=== PATIENT | male | born 1960 | race Caucasian/White ===

== ENCOUNTER 2021-01-30 07:34 | Inpatient (IN) | payer MEDICAID ==
[~2021-01-30] VITALS: Ht 177.8 cm; Wt 99.8 kg
--- NOTE | ~2021-01-30 | OP ---
PATIENT NAME: JAY OROZCO MEDICAL RECORD: [id number] :58 LOCATION:D. D.2107 ADMISSION DATE:01/30/21 SURGEON: SAL JOHNS MD DATE OF OPERATION: 02/01/2021 REFERRING PHYSICIAN: 1. Owen Walls MD 2. Leighton Jimenez MD PREOPERATIVE DIAGNOSIS: End-stage renal disease and dependence on hemodialysis. POSTOPERATIVE DIAGNOSIS: End-stage renal disease and dependence on hemodialysis. OPERATION PERFORMED: Creation of a left upper extremity brachial artery to basilic vein amino type arteriovenous fistula. SURGEON: Sal Johns MD ANESTHESIA: Regional nerve block plus MAC per PRODUCT DEVELOPMENT CONSULTANT PREOPERATIVE NOTE: Mr. Orozco is a 60-year-old male with end-stage renal disease, who was admitted to the hospital with congestive heart failure and fluid overload, having missed some dialysis. He dialyzes in [place] with a catheter. He needs long-term access and Dr. Walls has asked me to go ahead and place that access while he is an inpatient. Actually, he was already scheduled to have been done as an outpatient today, but that was before he was admitted to the hospital. DESCRIPTION OF PROCEDURE: Under anesthesia in supine position, the patient was prepped and draped in sterile manner. A tourniquet was placed on the upper arm and application of nitroglycerin ointment to the arm was done and then the arm was examined with ultrasound. I found the best vein to be the basilic vein in the upper arm and elected to go ahead with a brachiobasilic fistula, probably in 2 stages. I made a transverse incision in the antecubital space and exposed the median cubital vein branch to the basilic vein and freed it from the surrounding structures and ligated distal tributaries and treated with topical papaverine. It was divided and bevelled and flushed with heparinized saline and clamped. The brachial artery was exposed and controlled with Silastic loops and prepared for anastomosis. A small arteriotomy about 6 mm in length was made and the artery was then flushed with heparinized saline. An end-of-vein to [id number]-gp-[id number] anastomosis was then completed with running 7-0 Prolene. With release of the occluding loops, excellent flow was immediately established within the fistula and there was preservation of flow distally in the brachial artery and then the radial and ulnar arteries at the wrist. The Doppler flow signals were not much affected by occlusion of the fistula. The wound was irrigated with saline and then closed with interrupted inverted 3-0 Vicryl running intracuticular 4-0 Stratafix, Dermabond glue and Maxorb AG, dressing of Tegaderm and Cavilon skin prep was applied and the patient then was awakened and returned to the recovery room. PLAN: The patient will go home when maximal hospital benefit per nephrology. I OPERATIVE REPORT [id number] JAY OROZCO will need to see him back in my office probably in about 10 to 14 days to remove his dressing and do a wound check. I will have to plan on returning him to the operating room in 2 to 4 weeks for revision to convert this Anna fistula to a brachial artery to translocated basilic vein AV fistula. Blood loss during the operation was about 5 mL. All sponges, instruments and needles were accounted for. No drain was used and no surgical specimen was submitted for histopathology. TRANSINT:[id number] Voice Confirmation ID: [id number] DOCUMENT ID: [id number] SAL JOHNS MD CC: LEIGHTON JIMENEZ MD and OWEN WALLS MD [id number] DICTATION DATE: 02/01/21 1226 PSYCHIATRIC NURSE: 02/01/21 215 ADM IN [facility] [address] [place] [address]
[2021-01-30] MEDS ORDERED: LISINOPRIL40 MG PO (07:41)
[2021-01-30] MEDS ORDERED: HYDROCHLOROTHIA50 MG PO (07:42)
[2021-01-30] MEDS ORDERED: GEODON40 MG PO (07:43)
[2021-01-30] MEDS ORDERED: CLONIDINE HCL0.1 MG PO (07:43)
[2021-01-30 08:09] LABS: BASOPHILS 0.2 % (0-2); EOSINOPHILS 0.1 % (0-7); HEMATOCRIT 31.4 % (42.0-54.0); HEMOGLOBIN 10.2 g/dL (13.5-17.5); IMMATURE GRANULOCYTES 0.9 % (0-5); LYMPHOCYTE ABS# 0.66 10x3/uL (1.32-3.57); LYMPHOCYTES 7.4 % (15-50); MCH 30.3 pg (26.0-34.0); MCHC 32.5 g/dL (31.0-37.0); MCV 93.2 fL (80.0-100.0); MONOCYTES 1.5 % (2-11); NEUTROPHIL ABS# 7.96 10x3/uL (1.78-5.38); NEUTROPHILS 89.9 % (40-80); PLATELET COUNT 163 10x3/uL (130-400); RBC 3.37 10x6/uL (4.20-6.10); RDW 13.5 % (11.5-14.5); WBC 8.9 10x3/uL (4.8-10.8)
[2021-01-30 08:18] LABS: CALC OSMOLALITY 304 mosm/kg (275-300); CALCIUM 8.3 mg/dL (8.5-10.1); CARBON DIOXIDE 20.3 mmol/L (21.0-32.0); CHLORIDE - SERUM 104 mmol/L (98-107); CREATININE - SERUM 7.1 mg/dL (0.6-1.3); GLUCOSE 259 mg/dL (74-106); POTASSIUM - SERUM 5.8 mmol/L (3.5-5.1); SODIUM 135 mmol/L (136-145); UREA NITROGEN 85 mg/dL (7-18); eGFR NON AFRICAN AMERICAN 8 mL/min (90-120)
[2021-01-30 08:21] LABS: APTT 34.7 SECONDS (22.8-39.4); INR 1.14 (0.85-1.17); PROTIME 13.5 SECONDS (11.6-15.0)
[2021-01-30 08:32] LABS: ALBUMIN 2.7 g/dL (3.4-5.0); ALKALINE PHOSPHATASE 74 U/L (30-120); ALT (SGPT) 32 U/L (10-68); BILIRUBIN - TOTAL 0.58 mg/dL (0.2-1.3); CKMB 1.4 U/L (0.0-3.6); CREATINE KINASE 165 UL (21-232); PRO BNP 16814 pg/mL (0-125); PROTEIN - SERUM 7.9 g/dL (6.4-8.2)
[2021-01-30 11:31] VITALS: BP 180/79
--- NOTE | 2021-01-30 12:16 | NUR ---
CALCIUM GLUC. INFUSION STOPPED AT 0850
--- NOTE | 2021-01-30 14:30 | NUR ---
NURSE GOT PATIENT FROM DIALYSIS, PATIENT IS ALERT AND ORIENTED. PLAN OF CARE REVIEWED AND ASSESSMENT HAS BEEN COMPLETED. PATIENT DENIES PAIN OR NEEDS. CALL LIGHT IN REACH
[2021-01-30 14:49] VITALS: BP 180/81; BMI 31.6
[2021-01-30 16:58] LABS: INR 1.14 (0.85-1.17); PROTIME 13.5 SECONDS (11.6-15.0)
[2021-01-30 19:04] VITALS: BP 189/68
--- NOTE | 2021-01-30 19:46 | NUR ---
RECIEVED SITTING UP IN BED WITH EYES OPEN. ALERT A ND ORIETNED X4. UP AD FIONA TO BR. DENIES ANY NEEDS AT THIS TIME.
[2021-01-30 23:47] VITALS: BP 166/56
[2021-01-31 04:40] VITALS: BP 188/66
[2021-01-31 05:11] LABS: BASOPHILS 0.3 % (0-2); EOSINOPHILS 2.4 % (0-7); HEMATOCRIT 30.6 % (42.0-54.0); HEMOGLOBIN 9.9 g/dL (13.5-17.5); IMMATURE GRANULOCYTES 0.9 % (0-5); LYMPHOCYTE ABS# 1.18 10x3/uL (1.32-3.57); LYMPHOCYTES 20.5 % (15-50); MCHC 32.4 g/dL (31.0-37.0); MCV 92.7 fL (80.0-100.0); MEAN PLATELET VOLUME 10.5 fL (7.4-10.4); MONOCYTES 10.6 % (2-11); NEUTROPHIL ABS# 3.77 10x3/uL (1.78-5.38); NEUTROPHILS 65.3 % (40-80); PLATELET COUNT 144 10x3/uL (130-400)
[2021-01-31 05:18] LABS: WBC 5.8 10x3/uL (4.8-10.8)
[2021-01-31 05:35] LABS: ALBUMIN 2.4 g/dL (3.4-5.0); BILIRUBIN - TOTAL 0.56 mg/dL (0.2-1.3); CALCIUM 8.3 mg/dL (8.5-10.1); PROTEIN - SERUM 7.1 g/dL (6.4-8.2)
[2021-01-31 05:36] LABS: ANION GAP 13.1 mmol/L (8-16); CARBON DIOXIDE 26.8 mmol/L (21.0-32.0); POTASSIUM - SERUM 4.9 mmol/L (3.5-5.1)
[2021-01-31 08:25] VITALS: BP 186/70
[2021-01-31 09:13] LABS: HEPATITIS C ANTIBODY >11.0 S/CO RAT (0.0-0.9)
[2021-01-31 12:12] VITALS: Ht 177.8 cm; Wt 99.8 kg
[2021-01-31 17:04] VITALS: BP 149/59
[2021-01-31 20:25] VITALS: BP 197/74
[2021-02-01 01:11] VITALS: BP 175/67
[2021-02-01 04:59] VITALS: BP 175/70
[2021-02-01 05:22] LABS: BASOPHILS 0.6 % (0-2); EOSINOPHILS 3.5 % (0-7); HEMATOCRIT 30.8 % (42.0-54.0); HEMOGLOBIN 10.1 g/dL (13.5-17.5); IMMATURE GRANULOCYTES 1.1 % (0-5); LYMPHOCYTE ABS# 1.11 10x3/uL (1.32-3.57); LYMPHOCYTES 17.8 % (15-50); MCH 29.8 pg (26.0-34.0); MCHC 32.8 g/dL (31.0-37.0); MCV 90.9 fL (80.0-100.0); MEAN PLATELET VOLUME 10.1 fL (7.4-10.4); MONOCYTES 12.5 % (2-11); NEUTROPHIL ABS# 4.02 10x3/uL (1.78-5.38); NEUTROPHILS 64.5 % (40-80); PLATELET COUNT 151 10x3/uL (130-400); RBC 3.39 10x6/uL (4.20-6.10); RDW 12.6 % (11.5-14.5); WBC 6.2 10x3/uL (4.8-10.8)
[2021-02-01 05:35] LABS: ANION GAP 11.3 mmol/L (8-16); CALCIUM 7.9 mg/dL (8.5-10.1); CARBON DIOXIDE 27.9 mmol/L (21.0-32.0); CREATININE - SERUM 4.3 mg/dL (0.6-1.3); POTASSIUM - SERUM 4.2 mmol/L (3.5-5.1)
--- NOTE | 2021-02-01 06:17 | NUR ---
I have reviewed this patient and I concur with the Shift Assessment completed by the Licensed Practical Nurse today this shift.
[2021-02-01 08:29] VITALS: BP 169/67
--- NOTE | 2021-02-01 09:13 | NUR ---
PT OFF TO PREOP. BP MEDS GIVEN WITH SIP EARLY SHIFT. CONSENTS SIGNED AND ON CHART.
--- NOTE | 2021-02-01 13:03 | NUR ---
PT BACK TO ROOM FROM PACU. LEFT ARM IN SLING. ATE LUNCH. DIALYSIS NOTIFIED OF PT BACK TO ROOM, STATES SHE WILL SEND TRANSPORTER TO BRING DOWN. PT INFORMED.
--- NOTE | 2021-02-01 17:23 | NUR ---
DIALYSIS TREATMENT TODAY AFTER SURGERY. REMVOED 2.5 LITERS. PATIENT TOLERATED TREATMET WELL. REPORT CALLED TO ANKITA PALAFOX RN
[2021-02-01 21:14] VITALS: BP 153/60
[2021-02-02 01:47] VITALS: BP 119/74
--- NOTE | 2021-02-02 02:52 | NUR ---
I have reviewed this patient and I concur with the Shift Assessment completed by the Licensed Practical Nurse today this shift.
[2021-02-02 05:50] VITALS: BP 164/64
[2021-02-02 06:13] LABS: BASOPHILS 0.6 % (0-2); EOSINOPHILS 3.1 % (0-7); HEMATOCRIT 29.3 % (42.0-54.0); HEMOGLOBIN 9.9 g/dL (13.5-17.5); IMMATURE GRANULOCYTES 1.5 % (0-5); LYMPHOCYTE ABS# 0.93 10x3/uL (1.32-3.57); LYMPHOCYTES 13.9 % (15-50); MCH 30.4 pg (26.0-34.0); MCHC 33.8 g/dL (31.0-37.0); MCV 89.9 fL (80.0-100.0); MEAN PLATELET VOLUME 10.3 fL (7.4-10.4); MONOCYTES 10.8 % (2-11); NEUTROPHIL ABS# 4.67 10x3/uL (1.78-5.38); NEUTROPHILS 70.1 % (40-80); PLATELET COUNT 155 10x3/uL (130-400); RBC 3.26 10x6/uL (4.20-6.10); RDW 12.4 % (11.5-14.5); WBC 6.7 10x3/uL (4.8-10.8)
[2021-02-02 06:25] LABS: ANION GAP 11.4 mmol/L (8-16); CALCIUM 7.9 mg/dL (8.5-10.1); CARBON DIOXIDE 27.8 mmol/L (21.0-32.0); CREATININE - SERUM 3.5 mg/dL (0.6-1.3); POTASSIUM - SERUM 4.2 mmol/L (3.5-5.1)
--- NOTE | 2021-02-02 06:35 | NUR ---
I have reviewed this patient and I concur with the Shift Assessment completed by the Licensed Practical Nurse today this shift.
[2021-02-02 08:00] VITALS: BP 169/65
--- NOTE | 2021-02-02 09:00 | NUR ---
ALERT AND ORIENTED AND DENIES ANY PAIN OR DISCOMFORT. DRESSING INTACT TO LUE. TELEMETRY INTACT WITH SLING NOTED TO LUE. ENCOURAGED TO USE CALL LIGHT FOR ASSSIT.
[2021-02-02 11:00] VITALS: BP 160/71
[2021-02-02] MEDS ORDERED: HYDROCODON-ACE1 EAC7 PO (12:27)
--- NOTE | 2021-02-02 13:38 | NUR ---
IV DISCONTINUED AND VERBALIZED UNDERSTANDING OF DISCHARGE INSTRUCTIONS. STABLE AT TIME OF DISCHARGE.
--- NOTE | 2021-02-02 16:04 | MORECARE ---
CASE MANAGEMENT DISCHARGE SUMMARY PATIENT: JAY OROZCO UNIT: [id number] ADM DATE: 01/30/21 AGE: 60 : 58 SEX: M ROOM/BED: D.2107 AUTHOR: BEAR,DOC PHYSICIAN: REFERRING PHYSICIAN: MEMO WALLS MD DATE OF SERVICE: 02/02/21 Case Management Discharge Planning Summary COMMENTS ENTERED DATE: 02/02/21 15:57 CT COMMENT TYPE: Discharge Planning REVIEWER: Sascha Pritchett Home, no needs. CM met with patient to complete DC plan and to evaluate needs. Patient lives independently at home but has family support and help. Patient stated that his home is safe and has electricity and running water. Patient stated that the home has 4 steps to enter and he has difficulty at times managing the steps but there are handrails. Patient stated that he has no problems paying for medications and he fills his medications at [facility] in [place], [place]. Patient stated that his primary care physician is Dr. Mike Sanchez. At discharge, the patient plans to return home and feels this is a safe discharge. CM discussed availability of home health, rehab services, and medical equipment. Patient declined HHS, SNF, IPR, and DME. Patient stated that he dialyzes in [place] Thursday, , and Thursday. Message left with Dialysis Coordinator to notify of patient discharge. Patient voiced no other needs at this time and is satisfied with DC plan. Transportation provider at discharge will be with the patient's brotherDariel, . CM will continue to follow and will assist as needed with dc plans/needs. DCP REVIEW SUMMARY ANTICIPATED D/C DATE: 02/02/2021 EXPECTED LOS : 3 CASE STATUS: DCP Initiated INITIAL REVIEW: 01/30/2021 INITIAL REVIEWER: Sascha Pritchett FINAL DISCHARGE DISPOSITION: : FINAL REVIEWER: FINAL REVIEW DATE: DCP Focus Questions & Answers DCP Evaluation QUESTION: ANSWER Patient gives permission to discuss discharge plans with: (name, relationship and number) : Dariel fleming, Patient's ability to cope with chronic illness : d. No chronic illness Patient's current cognitive status: : *Oriented to person, place, situation, time and present Family / Caregiver's ability to cope with chronic illness: : a. Adequate (ability to meet patient's medical needs, ensures patient attends medical appts.) Patient and/or caregiver agree upon recommended discharge plan? : Yes Physical Status: : Independent with ADL's Family / Caregiver's ability to cope with chronic illness: : a. Adequate (ability to meet patient's medical needs, ensures patient attends medical appts.) Functional screen assessment: : Basic needs can adequately be met by self Does the patient have the ability to pay for or attain post discharge needs / services? : Yes Living Arrangements: : Home Alone with Support Is there a likelihood that the patient will require additional services to return to the preadmission environment? : No Equipment needed for post hospitalization: : None Baseline cognitive status: : *Oriented to person, place, situation, time and present Patient with capacity for self-care or can be cared for in same environment as prior to hospitalization? : Yes Physical environment modification needed / anticipated for discharge: : No Medication Management: : Patient states can afford medications Medication Management: : Patient states can read and understand medication labels Pharmacy name(s): : [facility] in [place], [place] Does Patient have transportation to get home and to follow-up medical appointments when discharged from the hospital? : Yes Would patient like to participate in any Care Coordination programs (if applicable): : Not applicable Does the patient have electricity at home? : Yes Does the patient have running water in their house? : Yes Equipment in use: : None Mental health screen: : No mental health history DCP Re-evaluation QUESTION: ANSWER Would patient like to participate in any Care Coordination programs (if applicable): : Not applicable PATIENT: JAY OROZCO ENCOUNTER: [id number] MEDICAL RECORD#: [id number] ADMISSION DATE: 01/30/2021 DISCHARGE DATE: 02/02/2021 ATTENDING MD: CECILIA: AGE: 60 MARITAL STATUS: S DC PLAN ID: [id number] FACILITY: [facility] PRINTED ON: 02/02/21 16:04 CT All edits/amendments must be made on the electronic document DICTATION DATE: 02/02/211603 CONSTRUCTION PROJECT COORDINATOR: KATIE 02/02/21 160 RPT#: [id number] DC DATE:02/02/21 STATUS: DIS IN [facility] [address] [place] [address] END OF REPORT
--- NOTE | 2021-02-03 17:08 | MORECARE ---
CASE MANAGEMENT DISCHARGE SUMMARY PATIENT: JAY OROZCO UNIT: [id number] ADM DATE: 01/30/21 AGE: 60 : 58 SEX: M ROOM/BED: D.2107 AUTHOR: BEAR,DOC PHYSICIAN: REFERRING PHYSICIAN: MEMO WALLS MD DATE OF SERVICE: 02/03/21 Case Management Discharge Planning Summary COMMENTS ENTERED DATE: 02/02/21 15:57 CT COMMENT TYPE: Discharge Planning REVIEWER: Sascha Pritchett Home, no needs. CM met with patient to complete DC plan and to evaluate needs. Patient lives independently at home but has family support and help. Patient stated that his home is safe and has electricity and running water. Patient stated that the home has 4 steps to enter and he has difficulty at times managing the steps but there are handrails. Patient stated that he has no problems paying for medications and he fills his medications at [facility] in [place], [place]. Patient stated that his primary care physician is Dr. Mike Sanchez. At discharge, the patient plans to return home and feels this is a safe discharge. CM discussed availability of home health, rehab services, and medical equipment. Patient declined HHS, SNF, IPR, and DME. Patient stated that he dialyzes in [place] Thursday, , and Thursday. Message left with Dialysis Coordinator to notify of patient discharge. Patient voiced no other needs at this time and is satisfied with DC plan. Transportation provider at discharge will be with the patient's brotherDariel, . CM will continue to follow and will assist as needed with dc plans/needs. DCP REVIEW SUMMARY ANTICIPATED D/C DATE: 02/02/2021 EXPECTED LOS : 3 CASE STATUS: DCP Complete INITIAL REVIEW: 01/30/2021 INITIAL REVIEWER: Sascha Pritchett FINAL DISCHARGE DISPOSITION: 01 : Home or Self Care (Routine Discharge) FINAL REVIEWER: Sascha Pritchett FINAL REVIEW DATE: 02/03/2021 DCP Focus Questions & Answers DCP Evaluation QUESTION: ANSWER Family / Caregiver's ability to cope with chronic illness: : a. Adequate (ability to meet patient's medical needs, ensures patient attends medical appts.) Patient gives permission to discuss discharge plans with: (name, relationship and number) : brotherDariel, Patient's ability to cope with chronic illness : d. No chronic illness Patient's current cognitive status: : *Oriented to person, place, situation, time and present Patient and/or caregiver agree upon recommended discharge plan? : Yes Physical Status: : Independent with ADL's Family / Caregiver's ability to cope with chronic illness: : a. Adequate (ability to meet patient's medical needs, ensures patient attends medical appts.) Functional screen assessment: : Basic needs can adequately be met by self Does the patient have the ability to pay for or attain post discharge needs / services? : Yes Living Arrangements: : Home Alone with Support Is there a likelihood that the patient will require additional services to return to the preadmission environment? : No Equipment needed for post hospitalization: : None Baseline cognitive status: : *Oriented to person, place, situation, time and present Patient with capacity for self-care or can be cared for in same environment as prior to hospitalization? : Yes Physical environment modification needed / anticipated for discharge: : No Medication Management: : Patient states can afford medications Medication Management: : Patient states can read and understand medication labels Pharmacy name(s): : [facility] in [place], [place] Does Patient have transportation to get home and to follow-up medical appointments when discharged from the hospital? : Yes Would patient like to participate in any Care Coordination programs (if applicable): : Not applicable Does the patient have electricity at home? : Yes Does the patient have running water in their house? : Yes Equipment in use: : None Mental health screen: : No mental health history DCP Re-evaluation QUESTION: ANSWER Would patient like to participate in any Care Coordination programs (if applicable): : Not applicable PATIENT: JAY OROZCO ENCOUNTER: [id number] MEDICAL RECORD#: [id number] ADMISSION DATE: 01/30/2021 DISCHARGE DATE: 02/02/2021 ATTENDING MD: CECILIA: AGE: 60 MARITAL STATUS: S DC PLAN ID: [id number] FACILITY: [facility] PRINTED ON: 02/03/21 17:08 CT All edits/amendments must be made on the electronic document DICTATION DATE: 02/03/211707 PRIVATE SECTOR EXECUTIVE: KATIE 02/03/211707 RPT#: [id number] DC DATE:02/02/21 STATUS: DIS IN [facility] [address] [place] [address] END OF REPORT
--- NOTE | 2021-02-04 14:47 | MORECARE ---
CASE MANAGEMENT DISCHARGE SUMMARY PATIENT: JAY OROZCO UNIT: [id number] ADM DATE: 01/30/21 AGE: 60 : 58 SEX: M ROOM/BED: D.2107 AUTHOR: BEAR,DOC PHYSICIAN: REFERRING PHYSICIAN: MEMO WALLS MD DATE OF SERVICE: 02/04/21 Case Management Discharge Planning Summary COMMENTS ENTERED DATE: 02/02/21 15:57 CT COMMENT TYPE: Discharge Planning REVIEWER: Sascha Pritchett Home, no needs. CM met with patient to complete DC plan and to evaluate needs. Patient lives independently at home but has family support and help. Patient stated that his home is safe and has electricity and running water. Patient stated that the home has 4 steps to enter and he has difficulty at times managing the steps but there are handrails. Patient stated that he has no problems paying for medications and he fills his medications at [facility] in [place], [place]. Patient stated that his primary care physician is Dr. Mike Sanchez. At discharge, the patient plans to return home and feels this is a safe discharge. CM discussed availability of home health, rehab services, and medical equipment. Patient declined HHS, SNF, IPR, and DME. Patient stated that he dialyzes in [place] Thursday, , and Thursday. Message left with Dialysis Coordinator to notify of patient discharge. Patient voiced no other needs at this time and is satisfied with DC plan. Transportation provider at discharge will be with the patient's brother, Dariel Booker, . CM will continue to follow and will assist as needed with dc plans/needs. DCP REVIEW SUMMARY ANTICIPATED D/C DATE: 02/02/2021 EXPECTED LOS : 3 CASE STATUS: DCP Complete INITIAL REVIEW: 01/30/2021 INITIAL REVIEWER: Sascha Pritchett FINAL DISCHARGE DISPOSITION: 01 : Home or Self Care (Routine Discharge) FINAL REVIEWER: Sascha Pritchett FINAL REVIEW DATE: 02/03/2021 DCP Focus Questions & Answers DCP Evaluation QUESTION: ANSWER Patient and/or caregiver agree upon recommended discharge plan? : Yes Family / Caregiver's ability to cope with chronic illness: : a. Adequate (ability to meet patient's medical needs, ensures patient attends medical appts.) Patient's current cognitive status: : *Oriented to person, place, situation, time and present Patient's ability to cope with chronic illness : d. No chronic illness Patient gives permission to discuss discharge plans with: (name, relationship and number) : Dariel fleming, Does the patient have the ability to pay for or attain post discharge needs / services? : Yes Functional screen assessment: : Basic needs can adequately be met by self Family / Caregiver's ability to cope with chronic illness: : a. Adequate (ability to meet patient's medical needs, ensures patient attends medical appts.) Physical Status: : Independent with ADL's Equipment needed for post hospitalization: : None Is there a likelihood that the patient will require additional services to return to the preadmission environment? : No Living Arrangements: : Home Alone with Support Patient with capacity for self-care or can be cared for in same environment as prior to hospitalization? : Yes Baseline cognitive status: : *Oriented to person, place, situation, time and present Physical environment modification needed / anticipated for discharge: : No Medication Management: : Patient states can read and understand medication labels Medication Management: : Patient states can afford medications Pharmacy name(s): : [facility] in [place], [place] Does Patient have transportation to get home and to follow-up medical appointments when discharged from the hospital? : Yes Would patient like to participate in any Care Coordination programs (if applicable): : Not applicable Does the patient have electricity at home? : Yes Does the patient have running water in their house? : Yes Equipment in use: : None Mental health screen: : No mental health history DCP Re-evaluation QUESTION: ANSWER Would patient like to participate in any Care Coordination programs (if applicable): : Not applicable PATIENT: JAY OROZCO ENCOUNTER: [id number] MEDICAL RECORD#: [id number] ADMISSION DATE: 01/30/2021 DISCHARGE DATE: 02/02/2021 ATTENDING MD: CECILIA: AGE: 60 MARITAL STATUS: S DC PLAN ID: [id number] FACILITY: [facility] PRINTED ON: 02/04/21 14:47 CT All edits/amendments must be made on the electronic document DICTATION DATE: 02/04/211446 TAILINGS DAM PUMPER: KAITE 02/04/211446 RPT#: [id number] DC DATE:02/02/21 STATUS: DIS IN [facility] [address] [place] [address] END OF REPORT
== END 2021-02-02 13:39 | disposition home or self-care, planned readmission (81) | DRG 673 ==
LOC: D.ER 07:34 → D.M2 07:45
PROVIDERS: Family Medicine; Surgery; ADMIT Internal Medicine Nephrology; ATTEND Internal Medicine Nephrology
PROC: 5A1D70Z Performance of Urinary Filtration, Intermittent, Less than 6 Hours Per Day (ICD-10-PCS; 2021-01-30)
PROC: 03180ZF Bypass Left Brachial Artery to Lower Arm Vein, Open Approach (ICD-10-PCS; principal; 2021-02-01 12:00)
DX: I12.0 Hypertensive chronic kidney disease with stage 5 chronic kidney disease or end stage renal disease (principal); N18.6 End stage renal disease; N17.9 Acute kidney failure, unspecified; E11.22 Type 2 diabetes mellitus with diabetic chronic kidney disease; E87.5 Hyperkalemia; Z91.15 Patient's noncompliance with renal dialysis

== ENCOUNTER 2021-03-01 06:51 | Day surgery (SDC) | payer MEDICAID ==
[~2021-03-01] VITALS: Ht 177.8 cm; Wt 97.7 kg
[~2021-03-01 06:51] MED LIST: CLONIDINE HCL0.1 MG PO; GEODON40 MG PO; HYDROCHLOROTHIA50 MG PO; HYDROCODON-ACE1 EAC7 PO; LISINOPRIL40 MG PO
[2021-03-01 07:26] LABS: ANION GAP 15.1 mmol/L (8-16); CALCIUM 8.7 mg/dL (8.5-10.1); CARBON DIOXIDE 24.5 mmol/L (21.0-32.0); CREATININE - SERUM 5.7 mg/dL (0.6-1.3); INR 1.04 (0.85-1.17); POTASSIUM - SERUM 4.6 mmol/L (3.5-5.1); PROTIME 12.6 SECONDS (11.6-15.0)
[2021-03-01] MEDS ORDERED: LOPRESSOR25 MG PO (07:55)
[2021-03-01] MEDS ORDERED: NORVASC10 MG PO (07:55)
[2021-03-01] MEDS ORDERED: CARAFATE1 G PO (07:55)
[2021-03-01 07:56] LABS: BASOPHILS 0.4 % (0-2); HEMATOCRIT 34.6 % (42.0-54.0); HEMOGLOBIN 11.4 g/dL (13.5-17.5); IMMATURE GRANULOCYTES 1.2 % (0-5); LYMPHOCYTE ABS# 1.31 10x3/uL (1.32-3.57); LYMPHOCYTES 17.9 % (15-50); MCH 29.8 pg (26.0-34.0); MCHC 32.9 g/dL (31.0-37.0); MCV 90.6 fL (80.0-100.0); MEAN PLATELET VOLUME 10.2 fL (7.4-10.4); MONOCYTES 10.7 % (2-11); NEUTROPHIL ABS# 4.87 10x3/uL (1.78-5.38); NEUTROPHILS 66.8 % (40-80); PLATELET COUNT 167 10x3/uL (130-400); RBC 3.82 10x6/uL (4.20-6.10); RDW 13.3 % (11.5-14.5); WBC 7.3 10x3/uL (4.8-10.8)
[2021-03-01] MEDS ORDERED: HYDRALAZINE HC100 MG PO (07:56)
[2021-03-01] MEDS ORDERED: PLAVIX75 MG PO (07:56)
[2021-03-01] MEDS ORDERED: FUROSEMIDE20 MG PO (07:56)
[2021-03-01] MEDS ORDERED: TRAZODONE HCL50 MG PO (07:57)
[2021-03-01] MEDS ORDERED: HUMULIN 70100 UNIT/1 SC (07:58)
[2021-03-01] MEDS ORDERED: HUMULIN R100 UNIT/1 SC (07:58)
[2021-03-01] MEDS ORDERED: SODIUM BICARBO650 MG PO (07:59)
[2021-03-01 08:06] VITALS: Ht 177.8 cm; Wt 97.7 kg
--- NOTE | 2021-03-01 15:12 | NUR ---
PT NAUSEOUS AND ACTIVELY VOMITING, GIVEN 4MG OF ZOFRAN IV.
--- NOTE | 2021-03-01 16:07 | NUR ---
1530 IV REMOVED AND PRESSURE HELD. INSTRUCTIONS GIVEN
--- NOTE | 2021-03-01 16:07 | NUR ---
1500 PT VOMITED A SMALL AMT. MEDICATED IV ZOFRAN WITH SOME RELIEF
--- NOTE | 2021-03-02 08:09 | OP ---
PATIENT NAME: JAY OROZCO MEDICAL RECORD: [id number] :58 LOCATION:[facility] ADMISSION DATE: SURGEON: SAL JOHNS MD DATE OF OPERATION: 03/01/2021 REFERRED BY: Leighton Jimenez MD PREOPERATIVE DIAGNOSES: End-stage renal disease and dependence on hemodialysis with nonfunctional left brachiobasilic Anna type arteriovenous fistula. POSTOPERATIVE DIAGNOSES: End-stage renal disease and dependence on hemodialysis with nonfunctional left brachiobasilic Anna type arteriovenous fistula. ADDITIONAL DIAGNOSIS: Stenosis of arteriovenous fistula. SURGEON: Sal Johns MD ANESTHESIA: Regional nerve block plus general anesthesia per CHIEF PHARMACIST. OPERATION PERFORMED: Planned return to the operating room for a staged open revision of a Anna fistula to create a translocated basilic vein brachial artery AV fistula with a new more proximal arterial anastomosis and placement of the vein in a superficial subcutaneous tunnel running anterior lateral to the anatomical course of the vein. DESCRIPTION OF PROCEDURE: Under anesthesia, the patient was prepped and draped in sterile manner. I examined him with duplex ultrasound and mapped out the course of the basilic vein and noted it to be well dilated in the largest portion of its course above the antecubital level. A long incision was made from axilla to the antecubital space and the vein fully mobilized. Tributaries being divided between clips and Vicryl ligatures. The juxta-anastomotic segment of vein had a stenosis within it that was treated repeatedly with topical papaverine and dilated manually unsuccessfully. The vein was fully mobilized and the superficial sensory nerves preserved. The vein was clamped, it divided and ligated distally and bevelled and the stenotic segment resected. A marking pen was used to identify the anterior of the vein and prevent twisting during the rest of the manipulation. The vein was flushed with heparinized saline and then placed in a very superficial subcutaneous tunnel anterior to the incision and was brought back to the primary incision at a level above the antecubital space where the brachial artery was exposed and controlled with Silastic loops. It was opened, flushed proximally and distally with heparinized saline and the bevelled end of the vein was then anastomosed to the side of the artery with running 7-0 Prolene. When completed and the occluding loops and clamps were released, excellent flow developed in the new fistula and the suture line was hemostatic. The wound was irrigated with saline. Doppler examination demonstrated continuous pulsatile flow in the fistula and preservation of flow in the brachial artery and then the radial and ulnar arteries distally at the wrist. The wound was closed without the use of a drain approximating tissues with interrupted inverted 3-0 Vicryl and then running intracuticular 4-0 Stratafix and Dermabond glue. It was dressed with Maxorb AG, Tegaderm and Cavilon skin prep and the patient was awakened from his anesthetic and returned to the recovery room in stable condition. Blood loss during the procedure was trivial, about 10 mL, was replaced. Sponges, instruments and needles were accounted for. No drain was used and no surgical specimen submitted for histopathology. OPERATIVE REPORT [id number] JAY OROZCO PLAN: If all goes as expected, we should probably be able to access this new fistula in about 1 month. The patient will be discharged to home today and return to see me in my office in 2 weeks. Until then, if possible, he should leave the initial operative dressing intact and keep it dry and clean. If necessary, it may need to be changed at dialysis. He is to continue his usual dialysis schedule, same home meds and diet. He is given a prescription for Angela 5/325, #15 tabs. He can have one or two p.o. every 4 hours p.r.n. pain. TRANSINT:[id number] Voice Confirmation ID: [id number] DOCUMENT ID: [id number] SAL JOHNS MD at 0809 CC: LEIGHTON JIMENEZ MD [id number] DICTATION DATE: 03/01/21 1227 SURGICAL TECHNOLOGIST: 03/01/21 1605 [facility] 03/01/21 [id number] [place] [address]
== END 2021-03-01 16:00 | disposition home or self-care (01) ==
LOC: D.OPS 06:51
PROVIDERS: ATTEND Surgery
DX: N18.6 End stage renal disease (principal); Z99.2 Dependence on renal dialysis; T82.590A Other mechanical complication of surgically created arteriovenous fistula, initial encounter; I10 Essential (primary) hypertension